=== PATIENT | female | born 1955 | race Caucasian/White ===

== ENCOUNTER 2024-01-27 11:13 | Emergency (ER) | payer MEDICARE, OTHER, SELFPAY ==
[2024-01-27] VITALS (47 sets, daily range): BP systolic 86–138; BP diastolic 40–84; PULSE 84–126; RESP 14–36; TEMP 36.1–37.3; O2SAT 64–100; BMI 24.3
--- NOTE | 2024-01-27 11:25 | EKG12_ITS ---
Test Reason : SOB Blood Pressure : */* mmHG Vent. Rate : 119 BPM Atrial Rate : 119 BPM P-R Int : 146 ms QRS Dur : 54 ms QT Int : 308 ms P-R-T Axes : 47 55 34 degrees QTcB Int : 433 ms Sinus tachycardia Possible Left atrial enlargement Septal infarct , age undetermined Abnormal ECG poor date baseline artifact Confirmed by Diego Nolasco ([id number]), food editor TREY PENALOZA ([id number]) on 02/02/2024 9:32:38 AM Referred By: Confirmed By: Diego Nolasco
--- NOTE | 2024-01-27 11:25 | RAD_ITS ---
STUDY: X-RAY CHEST REASON FOR EXAM: Female, 68 years old. Sob TECHNIQUE: Single AP portable view of the chest. COMPARISON: None. FINDINGS: EKG electrodes are seen. There is complete opacification of the right hemithorax with the abrupt cut off of the right mainstem bronchus. A large pleural effusion with underlying mild loss of the right lung should be excluded. The left lung is clear. There is no demonstrated pleural abnormality. Normal size heart. Normal mediastinum and gino. Normal visualized pulmonary arteries. There is atherosclerotic calcification of the aortic arch with tortuosity. There are diffuse degenerative changes of the visualized thoracic spine. Normal visualized ribs, clavicles, and shoulders. There is no demonstrated abnormality of the visualized soft tissue structures of the upper abdomen. RAD/Chest 1 View (Portable) IMPRESSION: Opacification of the right hemithorax with abrupt cut off of the right mainstem bronchus. This is suggestive of right bronchial mass with the right pleural effusion and volume loss in the right hemithorax. Electronically Signed: Ronald Thompson MD at 12:30 EDT ,
[2024-01-27 11:37] LABS: Absolute Lymphocyte Count 0.73 X10^3/uL (0.83-4.51); Absolute Neutrophil Count 11.4 X10^3/uL (2.0-7.7); Basophil# 0.04 X10^3/uL; Basophil% 0.3 % (0-1); Eosinophil# 0.23 X10^3/uL; Eosinophils% 1.7 % (0-5); Hematocrit 32.1 % (37-47); Hemoglobin 10.3 g/dL (12.0-15.0); Lymphocyte # 0.73 X10^3/ul (0.83-4.51); Lymphocyte % 5.4 % (19-41); Mean Corp Hgb Conc 32.1 g/dL (32-36); Mean Corpuscular Hgb 27.4 pg (27.0-32.0); Mean Corpuscular Volume 85.4 fL (81-99); Mean Platelet Vol. 9.3 fl (6.2-12.0); Monocyte% 8.1 % (0-10); NRBC Flagged by Analyzer 0 % (0-5); Neutrophil # 11.44 X10^3/uL (2.7-7.7); Neutrophil % 83.8 % (47-70); Platelet Count 639 K/mm3 (150-450); RBC Distribution Width CV 14.7 % (11.6-14.6); RBC Distribution Width SD 45.7 fl (35.1-43.9); Red Blood Count 3.76 M/mm3 (4.2-5.4); White Blood Count 13.6 K/mm3 (4.4-11.0)
[2024-01-27 11:49] LABS: Anion Gap 9 (5-15); BUN 10 mg/dL (7-18); BUN/Creat Ratio 10.7 RATIO (10-20); Chloride 106 mmol/L (98-107); Creatinine, Serum 0.93 mg/dL (0.55-1.02); EST Glomerular Filtration Rate 64 mL/min (>60); Est Glom Filt Rate - Afr Amer 77 mL/min (>60); Estimated Creatinine Clearance 51.38 ml/min; Glucose 107 mg/dL (74-106); Potassium 3.9 mmol/L (3.5-5.1); Sodium Level 138 mmol/L (136-145)
--- NOTE | 2024-01-27 12:00 | EDS_ITS ---
HPI History of Present Illness Chief Complaint: Shortness of Breath Informant: patient Onset/Context/Timing Onset: Days (2) Context: gradual Timing: Continuous Quality: Positive for Dyspnea on exertion Current Severity: Severe Maximum Severity: Severe Worsened by: Exertion Relieved by: Nothing Associated Symptoms cough, rhinorrhea, fever, subjective and chills; Negative for ear pain, sore throat, sweats, clear sputum, white sputum, yellow sputum or green sputum Chest Pain: Positive for None Narrative Narrative: Patient presents with shortness of breath that has been getting worse over the past 2 days. Patient states it is gradually getting worse. Patient states it is worse with any exertion. Patient states nothing seems to help with it. Patient admits to a cough but denies any sputum production. Patient admits to some subjective fevers and chills. Patient admits to some rhinorrhea. Patient denies any chest pain. Patient states she has a history of lung cancer and pneumonia. PE Risk Factors: Positive for Cancer; Negative for OCP + Smoking + > 35, Prior DVT or PE, Recent immobilization, Recent surgery or Recent travel [facility] Medical History (Updated 01/27/24 @ 16:[address] Lizandro Romero, DO) COPD (chronic obstructive pulmonary disease) Lung cancer Home Medications ?Medication ?Instructions ?Recorded ?Last Taken ?Type albuterol sulfate 90 mcg/actuation 2 inh inhalation Q4H PRN shortness 01/27/24 Unknown History aerosol inhaler (Ventolin HFA) of breath or wheezing atorvastatin 40 mg tablet 40 mg PO DAILY 01/27/24 Unknown History bupropion HCl 150 mg 24 hr tablet, 150 mg PO DAILY 01/27/24 Unknown History extended release (Wellbutrin XL) cholecalciferol (vitamin D3) 25 50 mcg PO DAILY 01/27/24 Unknown History mcg (1,000 unit) capsule duloxetine 60 mg capsule,delayed 60 mg PO DAILY 01/27/24 Unknown History release sprinkle (Drizalma Sprinkle) gabapentin 400 mg capsule 400 mg PO QHS 01/27/24 Unknown History levothyroxine 88 mcg capsule 88 mcg PO DAILY 01/27/24 Unknown History metformin 500 mg 24 hr 1,000 mg PO DAILY 01/27/24 Unknown History tablet,extended release (gastric retention) (Glumetza) multivitamin (Daily Multi-Vitamin 1 tab PO DAILY 01/27/24 Unknown History tablet) nifedipine 30 mg tablet,extended 30 mg PO BID 01/27/24 Unknown History release pantoprazole 40 mg tablet,delayed 40 mg PO BID 01/27/24 Unknown History release tiotropium 2.5 mcg-olodaterol 2.5 2 inh inhalation DAILY 01/27/24 Unknown History mcg/actuation mist for inhalation (Stiolto Respimat) Allergy/AdvReac Type Severity Reaction Status Date / Time No Known Allergies Allergy Verified 01/27/24 11:25 Surgical History (Updated 01/27/24 @ 15:[address] Lizandro Romero DO) Hx of thyroidectomy Hx of tonsillectomy Social History Smoking Status: Smoker, status unknown tobacco type: cigarettes ROS ROS ED Constitutional Constitutional ED: Reports fever(s); Denies chills Eyes Eyes: Denies blurry vision or change in vision ENT ENT ED: Reports rhinorrhea; Denies sore throat Cardiovascular Cardiovascular: Denies chest pain or palpitations Respiratory/Chest Respiratory/Chest: Reports cough and dyspnea Gastrointestinal Gastrointestinal: Denies nausea or vomiting Genitourinary Genitourinary ED: Denies dysuria or hematuria Musculoskeletal Musculoskeletal: Reports back pain and neck pain Integumentary Denies abscess or rash Neurologic Neurologic: Denies headache(s) or weakness Allergic/Immunologic Allergic/Immunologic ED: Denies mouth swelling or urticaria EXAM Physical Exam Const Vital Signs: 01/27/24 11:15 01/27/24 11:21 01/27/24 11:29 Temperature 97.1 F L 96.9 F L Temperature Source Temporal Temporal Pulse Rate 122 H 126 H Respiratory Rate 26 H 34 H Respiratory Effort Short of Breath Labored Pursed Lip Respiratory Depth Deep Respiratory Pattern Hyperpnea Blood Pressure 121/53 H 138/65 H Blood Pressure Mean 75 89 Pulse Ox 64 94 Oxygen Delivery Method Room Air High Flow Room Air Oxygen Flow Rate (L/min) 13 Fraction of Inspired Oxygen (FIO2) 01/27/24 11:34 01/27/24 11:46 01/27/24 12:07 Temperature Temperature Source Pulse Rate 122 H 118 H 117 H Respiratory Rate 28 H 27 H 24 H Respiratory Effort Respiratory Depth Respiratory Pattern Tachypnea Blood Pressure 121/66 H Blood Pressure Mean 84 Pulse Ox 95 98 Oxygen Delivery Method Airvo Oxygen Flow Rate (L/min) Fraction of Inspired Oxygen (FIO2) 80 01/27/24 12:25 01/27/24 12:25 01/27/24 12:25 Temperature 96.9 F L Temperature Source Oral Pulse Rate 114 H 114 H Respiratory Rate 18 18 Respiratory Effort Respiratory Depth Respiratory Pattern Blood Pressure 109/68 109/68 Blood Pressure Mean 81 81 Pulse Ox 98 98 98 Oxygen Delivery Method Airvo Airvo Airvo Oxygen Flow Rate (L/min) Fraction of Inspired Oxygen (FIO2) 01/27/24 12:30 01/27/24 13:00 01/27/24 14:31 Temperature 97 F L Temperature Source Oral Pulse Rate 116 H 112 H Respiratory Rate 26 H 31 H Respiratory Effort Respiratory Depth Respiratory Pattern Blood Pressure 113/64 104/54 L Blood Pressure Mean 80 70 Pulse Ox 94 96 Oxygen Delivery Method Airvo High Flow Oxygen Flow Rate (L/min) Fraction of Inspired Oxygen (FIO2) 85 01/27/24 14:34 Temperature 98.2 F Temperature Source Oral Pulse Rate 112 H Respiratory Rate 28 H Respiratory Effort Respiratory Depth Respiratory Pattern Blood Pressure 104/58 L Blood Pressure Mean 73 Pulse Ox 92 Oxygen Delivery Method Airvo Oxygen Flow Rate (L/min) Fraction of Inspired Oxygen (FIO2) Positive well nourished and well developed General Appearance ED: well developed and NAD HEENT Reports moist mucous membranes Neck supple and no JVD Resp Auscultation: diminished lung sounds right Cardio regular rhythm Rate: tachycardic GI non-tender and non-distended Neuro oriented x3, CN's II-XII intact bilaterally and no sensory deficits noted Masoud Coma Scale: document GCS findings Spontaneous Obeys Commands Oriented 15 Sensorium / Orientation: alert Motor Exam: strength 5/5 throughout Psych mental status grossly normal MDM MDM MDM Narrative Medical decision making narrative: Differential diagnosis includes pneumonia, pneumothorax, pleural effusion, viral illness, cardiac dysrhythmia, cardiac ischemia and electrolyte abnormality. Chest x-ray will be obtained to assess for pneumonia, pleural effusion, and pneumothorax. EKG will be obtained to assess for cardiac dysrhythmia and cardiac ischemia. CBC will be obtained to assess for leukocytosis and anemia. Basic metabolic profile will be obtained to assess for electrolyte abnormality and renal function. Serum lactate will be obtained to assess for sepsis. High-sensitivity troponin will be obtained to assess for cardiac ischemia. Urinalysis will be obtained to assess for urinary tract infection and hematuria. COVID-19, influenza, and RSV PCR will be obtained to assess for viral illness. Blood culture will be obtained to assess for sepsis. Lab Data Attestation: I reviewed the patient's lab results. Lab results narrative: CBC was reviewed. There is a mild leukocytosis of 13.6. There is a mild anemia with a hemoglobin of 10.3 and hematocrit of 32.1. Platelets were slightly increased at 639. Basic metabolic profile was reviewed and was essentially within normal limits. Initial high-sensitivity troponin was reviewed and was normal at 16. Lactate was reviewed and was normal at 1.9. Urinalysis was reviewed. Leukocyte esterase was 25 with 5-10 white blood cells and 2+ bacteria. Labs: Laboratory Results - last 24 hr 01/27/24 01/27/24 11:26 12:35 WBC 13.6 H RBC 3.76 L Hgb 10.3 L Hct 32.1 L MCV 85.4 MCH 27.4 MCHC 32.1 RDW Std Deviation 45.7 H RDW Coeff of Ben 14.7 H Plt Count 639 H MPV 9.3 Immature Gran % (Auto) 0.700 Neut % (Auto) 83.8 H Lymph % (Auto) 5.4 L [place] % (Auto) 8.1 Eos % (Auto) 1.7 Baso % (Auto) 0.3 Absolute Neuts (auto) 11.4 H Absolute Lymphs (auto) 0.73 L Nucleated RBC % 0 Sodium 138 Potassium 3.9 Chloride 106 Carbon Dioxide 23.0 Anion Gap 9 BUN 10 Creatinine 0.93 Estim Creat Clear Calc 51.38 Est GFR (MDRD) Af Amer 77 Est GFR (MDRD) Non-Af 64 BUN/Creatinine Ratio 10.7 Glucose 107 H Lactic Acid 1.9 Calcium 10.0 Troponin I High Sens 16 Urine Color Yellow Urine Clarity Clear Urine pH 6.0 Ur Specific [place] 1.020 Urine Protein 30 H Urine Glucose (UA) Normal Urine Ketones 5 H Urine Occult Blood 10 H Urine Nitrite Negative Urine Bilirubin 1 H Urine Urobilinogen 1 H Ur Leukocyte Esterase 25 H Urine RBC 0 SEEN Urine WBC 5-10 SEEN Ur Squamous Epith Cells 0-5 SEEN Urine Bacteria 2+ Hyaline Casts 5-10 SEEN Urine Mucus 2+ Radiography Chest X-Ray - ED: 1 View, Read by ED Physician and Read by Radiologist Diagnostic Testing: Clinical Impression(s) from Imaging Studies Chest X-Ray 01/27/24 11:25 IMPRESSION: Opacification of the right hemithorax with abrupt cut off of the right mainstem bronchus. This is suggestive of right bronchial mass with the right pleural effusion and volume loss in the right hemithorax. Electronically Signed: Ronald Thompson MD at 12:30 EDT , Portable chest x-ray was obtained. There is 1 view. On my independent interpretation, there is complete opacification of the right lung with a cut off at the right mainstem bronchus. This is suggestive of a bronchial mass with a right pleural effusion and volume loss. Radiologist also interpreted the x-ray and agrees. EKG Initial EKG: Attestation: I personally reviewed and interpreted this EKG as follows: Interpretation: Sinus Tachycardia (119) and Non-Specific ST Changes Comments: EKG was obtained. On my independent interpretation, shows sinus tachycardia with rate of 119. MI interval was normal at 146 ms. QRS and was normal at 54 ms. QTc interval was normal at 4 and 33 ms. [place] was normal. There are nonspecific ST-T wave changes noted. Prior EKG tracings: not available for review Prior: No Prior Treatment and Re-Evaluation :: Patient was given a DuoNeb aerosol here. Patient was placed on high flow nasal cannula. Patient was started on Rocephin and Zithromax. Case was discussed with the hospitalist. He felt that the patient will need bronchoscopy. There is no agricultural engineering teacher available to do bronchoscopy here. Because of this he r ecommended transfer the patient. Patient was advised of this. Patient requested to be transferred to [facility]. [facility] transfer line was contacted. Case was discussed with Dr. Taylor at [facility]. She accepted the patient to be transferred there. Patient understands and is agreeable with the plan. All questions were answered. Discharge Plan Triage Chief Complaint: Shortness of Breath ED Provider: Lizandro Romero Dx/Rx/DC Orders Clinical Impression: Acute hypoxic respiratory failure, Lung cancer, Dyspnea Prescriptions: No Action Stiolto Respimat 2.5-2.5 mcg/actuation mist 2 inh inhalation DAILY levothyroxine 88 mcg capsule 88 mcg PO DAILY gabapentin 400 mg capsule 400 mg PO QHS albuterol sulfate [Ventolin HFA] 90 mcg/actuation HFA aerosol inhaler 2 inh inhalation Q4H PRN (Reason: shortness of breath or wheezing) atorvastatin 40 mg tablet 40 mg PO DAILY bupropion HCl [Wellbutrin XL] 150 mg tablet extended release 24 hr 150 mg PO DAILY cholecalciferol (vitamin D3) 25 mcg (1,000 unit) capsule 50 mcg PO DAILY Drizalma Sprinkle 60 mg capsule, delayed rel sprinkle 60 mg PO DAILY metformin [Glumetza] 500 mg tablet,ER cynthia.retention 24 hr 1,000 mg PO DAILY nifedipine 30 mg tablet extended release 30 mg PO BID pantoprazole 40 mg tablet,delayed release (DR/EC) 40 mg PO BID multivitamin [Daily Multi-Vitamin] Tablet 1 tab PO DAILY Primary Care Provider: JOSIAS MCCURDY Referrals: [facility] Doctor,Out of [Non-Staff] - Print Language: Ukrainian Disposition Disposition: Acute Care Hospital Discharge Location: Other Acute Care Hospital
[2024-01-27] MEDS: Ipratropium/Albuterol Sulfate 3 ML AMPUL.NEB INHALATION (12:04)
[2024-01-27 12:43] LABS: Troponin-I HS 16 pg/mL (3.0-54.0)
[2024-01-27 12:44] LABS: Red Blood Cells-Urine 0 SEEN /hpf (0-5)
[2024-01-27 12:44] LABS: Lactic Acid 1.9 mmol/L (0.4-1.9)
[2024-01-27 13:21] LABS: Color, Urine Yellow (Yellow); Glucose, Dipstick Normal (Normal); Ketone-Dipstick 5 mg/dl (Negative); Leukocyte Esterase-Dipstick 25 /ul (Negative); Nitrite-Dipstick Negative (Negative); Occult Blood-Urine 10 /ul (Negative); Protein-Dipstick 30 mg/dl (Negative); Urine Clarity Clear (Clear); Urine Urobilinogen 1 mg/dl (Normal)
[2024-01-27] MEDS: Ceftriaxone 2 GM in 0.9% Normal Saline (50mL MB+) 50 ML IV (13:21)
[2024-01-27 13:25] LABS: Urine Bilirubin Dipstick 1 mg/dL (Negative)
[2024-01-27 13:29] LABS: Bacteria 2+ /hpf (None Seen); Hyaline Cast 5-10 SEEN /lpf (0-5); Mucous, Urine 2+ /hpf (<or=2+); Squamous Epithelial Cells - UA 0-5 SEEN /hpf (5-10); White Blood Cells 5-10 SEEN /hpf (0-5)
--- NOTE | 2024-01-27 14:30 | NURSING ---
CALLED [facility]. PATIENT WANTS TO GO TO [facility]
[2024-01-27] MEDS: Azithromycin 500 MG in Dextrose 5%-Water (250mL Bag) 250 ML 250 MG IV (14:40)
--- NOTE | 2024-01-27 17:33 | CPS ---
This RT was able to wean pt down to 60% and 50L at this time. Pt sats are 100%
--- NOTE | 2024-01-27 20:29 | ED.RN ---
This RN called report to Gerry PAGE.
== END 2024-01-27 21:13 | disposition short-term general hospital (02) ==
PROVIDERS: Emergency Provider Emergency Medicine; PCP Family Medicine; Visit Provider Emergency Medicine
DX: J96.01 Acute respiratory failure with hypoxia (principal); C34.90 Malignant neoplasm of unspecified part of unspecified bronchus or lung; J44.9 Chronic obstructive pulmonary disease, unspecified; F17.210 Nicotine dependence, cigarettes, uncomplicated; R50.9 Fever, unspecified; Z79.51 Long term (current) use of inhaled steroids; Z79.899 Other long term (current) drug therapy; Z79.84 Long term (current) use of oral hypoglycemic drugs
CPT/HCPCS: 71045; 80048; 81001; 83605; 84484; 85025; 87040; 87631; 93005; 94002; 94640; 96365; 96366; 96367; 99285; J7040; A4216; J0696